=== PATIENT | male | born 1995 | race Caucasian/White ===

== ENCOUNTER 2019-07-02 05:08 | Day surgery (SDC) | payer BC ==
--- NOTE | 2019-06-25 10:19 | RAD REPORT ---
EXAM DESCRIPTION: RAD - Chest Pa And Lat (2 Views) - 06/25/2019 10:13 am CLINICAL HISTORY: preop Chest pain. COMPARISON: Chest Pa And Lat (2 Views) dated 12/20/2015 FINDINGS: The lungs are clear. The heart is normal in size. No displaced fractures. IMPRESSION: No acute or concerning finding suspected.
--- NOTE | 2019-06-25 10:35 | EKG ---
Test Date: 2019-06-25 Test Time: 08:46:54 [employer] Application Developer: SARITHA MEASUREMENT RESULTS: Intervals: Rate: 62 MD: 150 QRSD: 90 QT: 402 QTc: 408 Curtis: P: 24 MD: 150 QRS: 48 T: 39 INTERPRETIVE STATEMENTS: Normal sinus rhythm with sinus arrhythmia Normal ECG Compared to ECG 04/06/2015 20:41:30 Sinus tachycardia no longer present Electronically Signed On 06-25-19 10:34:36 CDT by Jarocho Saucedo
[2019-06-25 11:04] LABS: Absolute Lymphocytes (CBC) 1.8 K/uL (0.7-4.9); Basophils % 0.3 % (0-1.3); Hematocrit 45.2 % (39.6-49.0); Lymphocytes % 21.9 % (15.3-44.8); MPV 9.9 fL (7.6-11.3); RBC Red Blood Cell Count 4.87 M/uL (4.33-5.43)
[2019-06-25 11:16] LABS: BUN Blood Urea Nitrogen 12 mg/dL (7-18); Bicarbonate 30 mmol/L (21-32); Glucose Level 100 mg/dL (74-106); Potassium 3.9 mmol/L (3.5-5.1); Sodium Level 138 mmol/L (136-145)
[2019-06-25 11:18] LABS: Protime INR 1.16
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
--- OUTSIDE RECORDS SUMMARY | 2019-07-02 05:12 | XMS REPORT ---
:[address] [facility] t Address [address] [place] [address] Care Team Providers Name Role Phone Ehsan Weems MD Attending Clinician Doctor Unassigned, Name Attending Clinician Unavailable Radiology Attending Clinician Unavailable DR MIKE Attending Clinician Unavailable Elba Falcon Attending Clinician DR MIKE Admitting Clinician Unavailable Elba Falcon Admitting Clinician Problems This patient has no known problems. Allergies, Adverse Reactions, Alerts This patient has no known allergies or adverse reactions. Medications This patient has no known medications. Procedures This patient has no known procedures. Encounters Start End Encounter Admission Attending Care Care Encounter Source Date/Time Date/Time Type Type Clinicians Facility Department ID 2019-05-03 2019-05-03 Telephone ANA PAULA Weems [id number] 00:00:00 00:00:00 [facility] [id number] Surgical [id number] Specialti [id number] [address] [place] 2019-05-03 2019-05-03 Orders Doctor CANTU [id number] 00:00:00 00:00:00 Only UnassignedCINDA [id number] [facility] [id number] [id number] 2019-04-21 2019-04-21 Orders Doctor CANTU [id number] 00:00:00 00:00:00 Only Unassigned, CINDA [id number] [facility] [id number] [id number] 2019-04-10 2019-04-10 [facility] Radiology [facility] [id number] 11:51:00 23:59:00 Encounter Health [id number] Clear [id number] Ignacio [id number] [facility] 804 ([facility]) 2017-04-04 2017-04-04 Outpatient Ivon MCKEON [facility] [id number] [address] 05:26:00 08:00:00 [facility] 2015-08-25 2015-08-28 Outpatient Terrie [facility] [id number] 393 [facility] 23:51:00 11:45:00 Jada Arreola Results This patient has no known results.
[2019-07-02] MEDS ORDERED: Ringers Lactate 1,000 ML IV ONE ×2 (05:56→09:26)
[2019-07-02] MEDS ORDERED: CEFAZOLIN/SWI 1gm 0 GM/0 ML SYR ONE (06:35)
[2019-07-02] MEDS ORDERED: NS 0.9% VIAL 20 ML ONE (06:51)
[2019-07-02] MEDS ORDERED: dexAMETHasone 10 MG/ML VIAL ONE ×2 (06:51→09:04)
[2019-07-02] MEDS ORDERED: LIDOCAINE 2% MPF 5 ML VIAL ONE ×2 (06:51→07:32)
[2019-07-02] MEDS ORDERED: MIDAZOLAM HCL 2 MG/2 ML INJ ONE (06:52)
[2019-07-02] MEDS ORDERED: FENTANYL CITR 100 MCG/2 ML ONE (06:52)
[2019-07-02] MEDS ORDERED: ROPLVACAINE HCL 40 ML ONE (06:52)
[2019-07-02] MEDS ORDERED: EPINEPHRINE/PF 1 MG/ML AMP ONE (07:19)
[2019-07-02] MEDS ORDERED: propofoL 200 MG/20 ML VIAL IV ONE (07:32)
[2019-07-02] MEDS ORDERED: ROCURONIUM 50 MG/5 ML VIAL IV ONE (07:32)
[2019-07-02] MEDS ORDERED: CLINDAMYCIN INJ 600 MG in NA CHLORIDE 0.9% 50 ML IV ONE (08:00)
[2019-07-02] MEDS ORDERED: Phenylephrine HCl 10 MG/ML 1 ML VIAL ONE (08:32)
[2019-07-02] MEDS ORDERED: NS 0.9% VIAL 10 ML ONE (08:33)
[2019-07-02] MEDS ORDERED: EPHEDRINE SULF 50 MG/ML VIAL ONE (08:40)
[2019-07-02] MEDS ORDERED: KETOROLAC 30 MG/ML INJ ONE (09:04)
[2019-07-02] MEDS ORDERED: ONDANSETRON 4 MG/2 ML VIAL ONE (09:04)
[2019-07-02] MEDS ORDERED: GLYCOPYRROLATE 0.2 MG/ML SYR ONE (09:23)
[2019-07-02] MEDS ORDERED: NEOSTIGMINE 1 MG/ML -5 ML ONE (09:34)
--- NOTE | 2019-07-02 09:36 | P.BOP ---
Preoperative diagnosis: right shoulder distal clavicle nonunion, AC arthrosis, impingement syndrome Postoperative diagnosis: same Primary procedure: right shoulder diagnostic arthroscopy with subacromial decompression Secondary procedure: right shoulder distal clavicle excision Estimated blood loss: 10 cc Specimen: none Findings: see dictation Anesthesia: General Complications: None Implants: none Fluids & blood products: per anesthesia record Transferred to: Recovery Room Condition: Good
[2019-07-02 10:56] VITALS: TEMP 97.3
[2019-07-02] MEDS ORDERED: PROMETHAZINE INJ 25 MG/ML AMP ONE (10:59)
--- NOTE | 2019-07-02 11:50 | RAD REPORT ---
EXAM DESCRIPTION: RAD - Shoulder 1 View - 07/02/2019 10:52 am FINDINGS: Lateral aspect of the right clavicle has been resected. No suspicious or unexpected findings.
[2019-07-02] MEDS ORDERED: HYDROCODONE/APAP 7.5/325 MG TAB ONE (11:57)
[2019-07-02 13:22] VITALS: O2SAT 99
[2019-07-02 13:23] VITALS: BP 122/76
--- NOTE | 2019-07-03 22:36 | OP ---
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 2.Right shoulder impingement syndrome. 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 2.Right shoulder impingement syndrome. Procedure Performed: 1.Right shoulder diagnostic arthroscopy with subacromial decompression. 2.Right shoulder open distal clavicle excision. Anesthesia: General endotracheal. Fluids: Per Anesthesia record. Estimated Blood Loss: 10 cc. Implants: None. Complications: None. Indication For Procedure: Michel is a 23-year-old male who presented to my clinic with right should er pain after sustaining an injury to his right shoulder. He had sustained an AC separation with dis sean clavicle nonunion. He reported continued pain with his right shoulder and difficulty with workin g on activities of daily living. He failed conservative treatment measures including corticosteroid injections. This pain had given him considerable difficulties with work and daily activities. I dis cussed with the patient at length risks and benefits associated with operative and nonoperative treat ment. He expressed understanding and elected to proceed with operative treatment. Description Of Procedure: After informed consent was obtained, the patient was identified in the pre operative holding area. The right upper extremity was marked. Patient was taken to the PACU where hazel kendrick underwent an interscalene block to his right upper extremity performed by Anesthesia. He was then taken back to the operating room, transferred to the operating table in supine fashion and placed und er general endotracheal anesthesia. He was placed in the beach chair position with his extremities p added. His right upper extremity was then examined. The patient had full range of motion with no in stability noted of his right shoulder. The right upper extremity was then prepped and draped in usua l sterile fashion. A time-out was initiated. The correct patient and procedure were confirmed and i dentified. The patient did receive his preoperative prophylactic antibiotics. Via the posterior por sean position, a spinal needle was introduced into the glenohumeral joint and was injected with 30 mL of normal saline to distend the capsule. A posterior portal was created and an arthroscope was broug ht into the posterior portal position. Anterior portal was then made under direct visualization and cannula was placed. A diagnostic arthroscopy was performed. Patient was noted to have intact and st able superior labrum, anterior labrum, and posterior labrum with no instability to probe. There were no loose bodies in the axillary pouch. Subscapularis was found to be intact and stable to probe. T he biceps tendon anchor was intact. Extra-articular segment was brought into the joint using a probe and there was no significant erythema of the biceps tendon. Subscapularis, supraspinatus, infraspin atus were found to be intact under the articular surface under direct visualization. There was no si gnificant chondromalacia noted of the humeral head or glenoid rim. The arthroscope was then brought in the subacromial space. The patient was noted to have subacromial bursitis. The bursa was then de brided after creating a lateral portal using an arthroscopic shaver. There was some mild spurring of the undersurface of the acromion and using a radiofrequency ablator, the undersurface of the acromio n was debrided and an acromioplasty was performed using an arthroscopic selma. The arthroscopic instr uments were then removed without complication. Next, attention was taken to the distal clavicle exci treva. Approximately, 7 cm incision was made centered over the AC joint. Dissection was taken throug h the superior AC ligament complex preserving the ligament complex to repair at the end of the proced ure. There was an area of nonunion over the anterior aspect of the distal clavicle identified and it was mobile. It was elevated off the anterior aspect of the distal clavicle using an osteotome and r emoved with a rongeur. The distal clavicle did appear to be stable before and at removal. Approxima tely a millimeter segment of the distal clavicle was then removed using a sagittal saw. Retractors w ere placed on either side of the clavicle and underneath to protect surrounding soft tissues. The 8 mm segment was then removed without complication. The wound was then irrigated thoroughly with jose l saline. The edges of the distal clavicle were then rasped to smooth out the edges. The superior c apsular structures were then approximated using 0 Vicryl. Subcutaneous tissue was approximated using 2-0 Vicryl. Skin was approximated using 3-0 Monocryl. Sterile dressings were applied. Portals wer e approximated using 3-0 Monocryl. Sterile dressings were applied. The patient was placed in a shou lder immobilizer, awakened, and transferred to PACU in stable condition. Postoperative Plan: Nonweightbearing to right upper extremity. He will again be in physical therapy 2 weeks post distal clavicle excision and decompression protocol. JONA/MODL Voice ID: [id number] Report ID: [id number]
== END 2019-07-02 12:40 | disposition home or self-care (01) ==
LOC: OR 05:08
PROVIDERS: ATTEND Orthopaedic Surgery Sports Medicine
PROC: 0PB90ZZ Excision of Right Clavicle, Open Approach (ICD-10-PCS; 2019-07-02)
PROC: 0RNJ4ZZ Release Right Shoulder Joint, Percutaneous Endoscopic Approach (ICD-10-PCS; principal; 2019-07-02 07:30)
DX: M19.111 Post-traumatic osteoarthritis, right shoulder (principal); M75.41 Impingement syndrome of right shoulder; S43.204A Unspecified dislocation of right sternoclavicular joint, initial encounter; M19.011 Primary osteoarthritis, right shoulder; F41.9 Anxiety disorder, unspecified; Z88.0 Allergy status to penicillin
CPT/HCPCS: 29822; 23120; 93005; 85025; 80048; 36415; 85610; 85730; 71046; 73020; J2704; J0171; J2550; J2370; J2250; J3010; J1100 ×2; J2795; J2710; J7120 ×2; J2405; J0690